=== PATIENT | female | born 1985 | race Two or more races ===

== ENCOUNTER 2017-06-15 21:21 | Emergency (ER) | payer MEDICAID, SELFPAY ==
[~2017-06-15] VITALS: Ht 162.6 cm; Wt 82.0 kg
[2017-06-15 22:49] VITALS: BP 113/74
== END 2017-06-15 23:28 | disposition home or self-care (01) ==
LOC: ED 23:00
DX: S62.622A Displaced fracture of middle phalanx of right middle finger, initial encounter for closed fracture (principal); W22.8XXA Striking against or struck by other objects, initial encounter; Y93.89 Activity, other specified; Y92.098 Other place in other non-institutional residence as the place of occurrence of the external cause; Y99.8 Other external cause status
CPT/HCPCS: 29130

== ENCOUNTER 2017-07-04 09:12 | Day surgery (SDC) | payer MEDICAID ==
[~2017-07-04] VITALS: Ht 162.6 cm; Wt 83.2 kg
[2017-07-04 09:30] VITALS: BP 118/68
[2017-07-04] MEDS ORDERED: LIDOCAINE 1%, 20ML ONE (09:52)
[2017-07-04] MEDS ORDERED: FENTANYL PF 100 MCG/2ML ONE (09:56)
[2017-07-04] MEDS ORDERED: MIDAZOLAM 1 MG/ML, 2ML ONE (09:57)
[2017-07-04] MEDS ORDERED: CEFAZOLIN PMX 1GM/50ML 50 ML IV ONE (11:00)
[2017-07-04] MEDS ORDERED: KETOROLAC 30 MG/1 ML ONE (11:44)
[2017-07-04] MEDS ORDERED: DEXAMETHASONE 4 MG/ML, 1ML ONE (12:27)
[2017-07-04] MEDS ORDERED: ONDANSETRON 2MG/ML, 2ML ONE (12:27)
[2017-07-04] MEDS ORDERED: CEFAZOLIN 1,000 MG ONE (12:27)
[2017-07-04] MEDS ORDERED: PROPOFOL 10 MG/ML, 20ML ONE (12:27)
[2017-07-04] MEDS ORDERED: ACETAMINOPHEN 325 MG TABLET PO PRN (12:30)
[2017-07-04] MEDS ORDERED: MEPERIDINE/PF 25MG/0.5ML IVPush PRN (12:30)
[2017-07-04] MEDS ORDERED: MIDAZOLAM 1 MG/ML, 2ML IV PRN (12:30)
[2017-07-04] MEDS ORDERED: DIAZEPAM 5 MG/ML, 2ML IVPush PRN (12:30)
[2017-07-04] MEDS ORDERED: hydrALAzine 20 MG/ML, 1ML IV PRN (12:30)
[2017-07-04] MEDS ORDERED: LABETALOL 5MG/ML, 20ML IV PRN (12:30)
[2017-07-04] MEDS ORDERED: OXYcodone 5 MG/5 ML ORAL.SOL UDC PO PRN (12:30)
[2017-07-04] MEDS ORDERED: METOPROLOL 1 MG/ML, 5ML IV PRN (12:30)
[2017-07-04] MEDS ORDERED: ALBUTEROL SULFATE 2.5 MG/3 ML NPPB PRN (12:30)
[2017-07-04] MEDS ORDERED: ONDANSETRON 2MG/ML, 2ML IVPush PRN (12:30)
[2017-07-04] MEDS ORDERED: EPHEDRINE 50 MG/ML, 1ML IVPush PRN (12:30)
[2017-07-04] MEDS ORDERED: FENTANYL PF 100 MCG/2ML IV PRN (12:30)
[2017-07-04] MEDS ORDERED: PROMETHAZINE 25 MG/ML, 1ML IV PRN (12:30)
[2017-07-04] MEDS ORDERED: HYDROmorphone 1 MG/ML, 1ML IV PRN (12:30)
[2017-07-04] MEDS ORDERED: HYDROcodone/APAP 7.5-325MG/15ML UDC PO PRN (12:30)
[2017-07-04] MEDS ORDERED: MEPERIDINE/PF 50 MG/ML ONE (12:46)
[2017-07-04] MEDS ORDERED: HYDROcodone/APAP 5/325 TABLET PO PRN (14:30)
[2017-07-04] MEDS ORDERED: morphine SULFATE 10 MG/ML, 1ML IV PRN (14:30)
[2017-07-04] MEDS ORDERED: LACTATED RINGERS 1,000 ML IV SCH (14:30)
[2017-07-04] MEDS ORDERED: ONDANSETRON 2MG/ML, 2ML IV PRN (14:30)
[2017-07-04] MEDS ORDERED: HYDR-3240 PO (14:40)
== END 2017-07-04 15:28 | disposition home or self-care (01) ==
LOC: OR 09:12 → 4NOR 09:26 → OR 15:28
PROVIDERS: ATTEND Orthopaedic Surgery
DX: S62.622A Displaced fracture of middle phalanx of right middle finger, initial encounter for closed fracture (principal); X50.1XXA Overexertion from prolonged static or awkward postures, initial encounter; Y93.89 Activity, other specified; Y92.89 Other specified places as the place of occurrence of the external cause; Y99.8 Other external cause status
CPT/HCPCS: 26735; 36415; 73140; 84702; C1713; J0690; J1100; J1885; J2175; J2250; J2405; J2704; J3010; J3490; 76001